=== PATIENT | female | born 1995 | race Caucasian/White ===

== ENCOUNTER 2020-06-12 10:24 | Emergency (ER) | payer OTHER ==
[2020-06-12] MEDS ORDERED: MOTRIN600 MG PO (12:04)
== END 2020-06-12 12:26 | disposition home or self-care (01) ==
LOC: FER 10:24
DX: S61.511A Laceration without foreign body of right wrist, initial encounter (principal); S61.210A Laceration without foreign body of right index finger without damage to nail, initial encounter; W25.XXXA Contact with sharp glass, initial encounter; Y92.009 Unspecified place in unspecified non-institutional (private) residence as the place of occurrence of the external cause
CPT/HCPCS: 73110

== ENCOUNTER 2020-07-10 10:46 | Emergency (ER) | payer OTHER ==
[~2020-07-10 10:46] MED LIST: MOTRIN600 MG PO
[2020-07-10 12:05] LABS: BASOPHIL 0.4 % (0-2); EOSINOPHIL 0.7 % (0-5); HCT 40.6 % (37.0-47.0); HGB 13.6 g/dl (12.5-16.0); LYMPHOCYTE 30.4 % (15-48); MCH 29.6 pg (25.0-31.0); MCHC 33.5 g/dL (32.0-36.0); MCV 88.5 fL (78.0-100.0); MONOCYTE 4.1 % (0-12); MPV 9.5 fL (6.0-9.5); NEUTROPHIL 64.2 % (41-80); NRBC 0; PLT 321 K/uL (150-400); RBC 4.59 M/uL (4.20-5.40); RDW 12.4 % (11.5-14.0); WBC 9.4 K/uL (4.0-10.5)
[2020-07-10 12:37] LABS: BILIRUBIN - TOTAL 0.3 mg/dL (0.2-1.0); BUN/CREAT RATIO (CALC) 14.5 RATIO; CREATININE 0.69 mg/dL (0.51-0.95); GLOBULIN (CALCULATION) 4.4 g/dL; POTASSIUM 3.9 mmol/L (3.5-5.1); TOTAL PROTEIN 8.4 g/dL (6.4-8.2)
[2020-07-10 12:42] LABS: LACTIC ACID 1.4 mmol/L (0.4-1.9)
[2020-07-10 13:02] LABS: BILIRUBIN NEGATIVE (NEGATIVE); BLOOD NEGATIVE Ery/uL (NEGATIVE); CLARITY CLEAR (CLEAR); COLOR YELLOW (YELLOW); GLUCOSE (U) NORMAL (NORMAL); LEUKOCYTES NEGATIVE Leu/uL (NEGATIVE); NITRITE NEGATIVE (NEGATIVE); PROTEIN NEGATIVE (NEGATIVE); SPECIFIC GRAVITY >=1.030 (1.001-1.030); UROBILINOGEN 0.2 mg/dL (0.2-1.0)
[2020-07-10] MEDS ORDERED: BENTYL10 MG PO (14:56)
[2020-07-10] MEDS ORDERED: ONDANSETRON ODT4 MG PO (14:56)
== END 2020-07-10 15:15 | disposition home or self-care (01) ==
LOC: FER 10:46
PROVIDERS: Emergency Medicine
DX: R10.31 Right lower quadrant pain (principal); R11.0 Nausea; R19.7 Diarrhea, unspecified; K76.0 Fatty (change of) liver, not elsewhere classified; Z98.51 Tubal ligation status; Z98.890 Other specified postprocedural states
CPT/HCPCS: 36415; 80053; 81003; 83605; 83690; 85025; 87040; Q9967